=== PATIENT | female | born 1965 | race Caucasian/White ===

== ENCOUNTER 2023-07-08 06:22 | Emergency (ER) | payer MEDICAID ==
[~2023-07-08] VITALS: Ht 172.7 cm; Wt 52.0 kg
[2023-07-08 06:37] VITALS: BP 100/40; PULSE 75; RESP 18; TEMP 98.3; O2SAT 97
[2023-07-08] MEDS ORDERED: loratadine 10mg tablet PO SCH (07:55)
[2023-07-08] MEDS ORDERED: LORA10TA65 PO (07:55)
[2023-07-08] MEDS: loratadine 10mg tablet PO ONE (08:31)
== END 2023-07-08 08:33 | disposition home or self-care (01) ==
LOC: ER 06:25
DX: J30.2 Other seasonal allergic rhinitis (principal); F17.200 Nicotine dependence, unspecified, uncomplicated; Z79.899 Other long term (current) drug therapy
CPT/HCPCS: 99282